=== PATIENT | female | born 1990 | race Caucasian/White ===

== ENCOUNTER 2021-09-10 13:00 | Emergency (ER) | payer OTHER, SELFPAY ==
--- NOTE | ~2021-09-10 | XR_ITS ---
XR abdomen/kub 1V 09/10/2021 13:40 INDICATION: Lower abdomen pain TECHNIQUE: KUB COMPARISON: No prior studies for comparison. FINDINGS: Bowel gas pattern is normal. There is no evidence of free air, mass, organomegaly, ascites or obstruction. No abnormal calculi are seen. The bones appear intact. IMPRESSION: 1: No acute abdominal abnormality identified. Reviewed, dictated and finalized at location A.
--- NOTE | 2021-09-10 13:12 | ED.ABDPAIN ---
HPI - Abdominal Pain General Chief Complaint: Abdominal Pain Stated Complaint: abd pain Time Seen by Provider: 09/10/21 13:02 History of Present Illness HPI narrative: 31-year-old female presents emergency room for evaluation of abdominal pain. Patient states that she is experiencing lower abdominal pain that radiates through to her back. Also endorses pressure on her rectum. Patient states she has not had a bowel movement in over 48 hours. Nauseated after eating. Has flatulence. Describes the pain as a fullness and bloating feeling. Denies fever Review of Systems Review of Systems: CONSTITUTIONAL: Denies fever, chills, or sweats. EYES: Denies visual changes, redness, or discharge. ENT: Denies rhinorrhea, congestion, sore throat, or otalgia. CARDIOVASCULAR: Denies chest pain, palpitations, or edema. RESPIRATORY: Denies cough or dyspnea. GASTROINTESTINAL: Reports abdominal pain, constipation GENITOURINARY: Denies dysuria or hematuria. SKIN: Denies rash or itching. MUSCULOSKELETAL: Denies back pain, joint pain, or myalgia. NEUROLOGIC: Denies headache, numbness, dizziness, or weakness. PSYCHIATRIC: Denies anxiety or depression. Exam Narrative: GENERAL: Well-appearing, well-nourished, no physical limitations, and in no acute distress. HEAD: Normocephalic, atraumatic. EYES: Conjunctivae normal, PERRLA and EOMI. CHEST: Clear to auscultation. No respiratory distress. No wheezes rales or rhonchi. No tenderness. HEART: Regular rate and rhythm. No murmur heard. Normal peripheral pulses. ABDOMEN: Soft, lower abdominal tenderness, nondistended, normal active bowel sounds. BACK: No CVA tenderness; No cervical/thoracic/lumbar tenderness, step-offs, bony abnormality; FROM EXTREMITIES: Normal range of motion. No edema. No clubbing or cyanosis SKIN: Warm, dry, no rash. No noted wounds NEURO: No focal deficits. Alert and oriented x3. MAEW. CN's II-XI intact bilaterally, normal gait PSYCH: Cooperative. Normal mood and affect. Course Vital Signs Vital signs: Vital Signs Temperature 36.3 C L 09/10/21 13:22 Pulse Rate 71 09/10/21 13:22 Respiratory Rate 16 09/10/21 13:22 Pulse Oximetry 99 09/10/21 13:22 Temperature 36.3 C L 09/10/21 13:22 Pulse Rate 71 09/10/21 13:22 Respiratory Rate 16 09/10/21 13:22 Pulse Oximetry 99 09/10/21 13:22 MDM - Abdominal Pain Lab Data Labs: Lab Results 09/10/21 Range/Units 13:48 Urine Color Yellow (Yellow) Urine Appearance Slightly cloudy (Clear) Urine pH 7.0 (5.0-9.0) Ur Specific Pioneer 1.010 (1.001-1.035) Urine Protein Negative (Negative) mg/dL Urine Glucose (UA) Negative (Negative) mg/dL Urine Ketones Negative (Negative) mg/dL Ur Blood (Man) Negative (Negative) Urine Nitrate Negative (Negative) Urine Bilirubin Negative (Negative) Urine Urobilinogen 0.2 (<2.0) mg/dL Leukocyte Esterase Rfl 1+ H (Negative) ALY/UL Urine RBC 3-5 H (0-2) /hpf Urine WBC 7-9 H /hpf Ur Squamous Epith Cells Many H (Few) /hpf Urine Bacteria Trace /hpf Hyaline Casts 1-2 (None) /lpf Urine Mucus Rare /lpf UCG Bedside Result Positive Reference Range: Negative Imaging Data Radiologist's impression: ITS Impressions Abdomen X-Ray 09/10/21 13:41 IMPRESSION: 1: No acute abdominal abnormality identified. Discharge Plan Discharge Clinical Impression: Constipation, First trimester , UTI (urinary tract infection) Patient Disposition: Home, Self-Care Condition: Stable Instructions: Antibiotic Form, Constipation (DC), High Fiber Diet (ED), Abdominal Pain in (ED) Additional Instructions: Follow-up with [facility] in the next 2 to 4 months. Recommend starting vitamins. To manage her constipation, may take Metamucil and or milk of magnesia. Prescriptions: New nitrofurantoin monohyd/m-cryst [Macrobid] 100 mg capsule
[2021-09-10 13:22] VITALS: PULSE 71; RESP 16; TEMP 36.3; O2SAT 99
[2021-09-10 13:59] LABS: Appearance Urine Slightly Cloudy (Clear); Bilirubin Urine Negative (Negative); Blood Urine Negative (Negative); Color Urine Yellow (Yellow); Glucose Urine UA Negative (Negative); Ketones Urine Negative (Negative); Leukocyte Esterase Ur 1+ LEU/UL (Negative); Nitrate Urine Negative (Negative); Protein Urine Negative (Negative); Urobilinogen Urine 0.2 mg/dL (<2.0)
[2021-09-10 14:02] LABS: Bacteria Urine Trace /hpf; Mucus Urine Rare /lpf; Squamous Epithelial Cell Urine Many /hpf (Few)
[2021-09-10 14:03] LABS: Add Urine Microscopic? YES
[2021-09-10 14:55] VITALS: BP 125/71; PULSE 71; RESP 16; TEMP 36.4; O2SAT 100
== END 2021-09-10 14:57 | disposition home or self-care (01) ==
LOC: ANHED 14:46
PROVIDERS: Emergency Provider Nurse Practitioner Family
DX: O23.41 Unspecified infection of urinary tract in pregnancy, first trimester (principal); N39.0 Urinary tract infection, site not specified; O26.891 Other specified pregnancy related conditions, first trimester; K59.00 Constipation, unspecified; Z3A.00 Weeks of gestation of pregnancy not specified
CPT/HCPCS: 74018; 81001; 81025; 87086; 99283

== ENCOUNTER 2023-03-20 08:22 | Emergency (ER) | payer OTHER, SELFPAY ==
[2023-03-20 08:34] VITALS: BP 125/84; PULSE 100; RESP 16; TEMP 37.1; O2SAT 99
--- NOTE | 2023-03-20 09:03 | ED.URI ---
HPI - URI/Sore Throat General Chief Complaint: Upper Respiratory Infection Stated Complaint: congestion, throat pain Time Seen by Provider: 03/20/23 09:03 History of Present Illness HPI Narrative: 33-year-old female presented for complaint of sore throat worsening over the past 4 days. She endorses sinus congestion for about 2 weeks. She took Claritin and Sudafed without much relief. She denies headache, dizziness, nausea, vomiting, diarrhea, fevers or chills. Related Data Allergies Allergy/AdvReac Type Severity Reaction Status Date / Time No Known Allergies Allergy Verified 03/20/23 09:00 Review of Systems Review of Systems: CONSTITUTIONAL: Denies body aches, fever, chills, or sweats. EYES: Denies visual changes, redness, or discharge. ENT: reports rhinorrhea, congestion, sore throat CARDIOVASCULAR: Denies chest pain, palpitations, or edema. RESPIRATORY: Denies dyspnea. GASTROINTESTINAL: Denies abdominal pain, nausea, vomiting, or diarrhea. SKIN: Denies rash, itching, or wounds. MUSCULOSKELETAL: Denies back pain, joint pain, or myalgia. NEUROLOGIC: Denies headache [facility] Past Medical History Medical History (Updated 03/20/23 @ 09:13 by Daysi García, PRODUCT DEVELOPMENT CONSULTANT) No pertinent past medical history Exam Narrative: GENERAL: well-appearing, no acute distress. EYES: conjunctivae clear ENT: Mucous membranes moist. nasal congestion. pearly sloan with normal light reflex bilaterally; no tragal tenderness. Oropharynx erythematous Tonsils enlarged 2+ with exudate. No drooling, no hoarseness, no trismus, uvula midline. No tripod positioning, hot potato voice, or soft palate swelling. NECK: Supple. Bilateral anterior cervical lymphadenopathy CHEST: Clear to auscultation, breath sounds equal. No respiratory distress, speaks in full sentences. HEART: Regular rate and rhythm. No murmur heard. SKIN: Warm, dry, no rash. NEURO: Alert and oriented x3. Course Course Emergency Course: Patient is aware of diagnosis, understands and agrees to treatment plan. Anticipatory guidance given. Patient agrees to follow-up as directed and is aware of reasons to seek care at the emergency department. Portions of this record may have been created with voice recognition software Level of Care: Express Care Visit Vital Signs Vital signs: Vital Signs Temperature 98.7 F 03/20/23 08:34 Pulse Rate 100 03/20/23 08:34 Respiratory Rate 16 03/20/23 08:34 Blood Pressure 125/84 03/20/23 08:34 Pulse Oximetry 99 03/20/23 08:34 Oxygen Delivery Room Air 03/20/23 08:34 Temperature 98.7 F 03/20/23 08:34 Pulse Rate 100 03/20/23 08:34 Respiratory Rate 16 03/20/23 08:34 Blood Pressure 125/84 03/20/23 08:34 Pulse Oximetry 99 03/20/23 08:34 Oxygen Delivery Room Air 03/20/23 08:34 MDM - URI/Sore Throat MDM Narrative Medical decision making narrative: POS strep result reviewed with pt. Advise supportive treatments. Patient is appropriate for outpatient treatment and follow-up. Differential Diagnosis Differential diagnosis: Likely upper respiratory infection, viral infection and pharyngitis Discharge Plan Discharge Clinical Impression: Strep pharyngitis Patient Disposition: Home, Self-Care Condition: Stable Instructions: Antibiotic Form, Strep Throat (ED) Additional Instructions: - Take the antibiotic as directed. Fever and sore throat typically resolve within one to three days. Most patients can return to work, after 12 to 24 hours of antibiotic therapy, provided you are fever free and otherwise well. -Eat and drink things that are easy to swallow, like soft foods, cool liquids, tea with honey, or popsicles . -Salt water gargles and/or may use topical anesthetic ( Chloraseptic spray) or lozenges to relieve dryness or throat pain -Alternate Tylenol and ibuprofen as needed for pain and fever as directed. 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
== END 2023-03-20 09:10 | disposition home or self-care (01) ==
PROVIDERS: Emergency Provider Nurse Practitioner Family
DX: J02.0 Streptococcal pharyngitis (principal)
CPT/HCPCS: 87880; 99213; G0463

== ENCOUNTER 2023-06-18 18:44 | Emergency (ER) | payer OTHER, SELFPAY ==
[2023-06-18 18:55] VITALS: BP 128/83; PULSE 77; RESP 16; TEMP 36.7; O2SAT 100
--- NOTE | 2023-06-18 19:01 | P.SPORTS_ITS ---
[facility] Past Medical History Medical History (Updated 03/21/23 @ 00:01 by Timi Nixon) No pertinent past medical history Allergies: Allergies Allergy/AdvReac Type Severity Reaction Status Date / Time No Known Allergies Allergy Verified 06/18/23 18:52 Home Medications: Home Medications Medication Instructions Recorded Confirmed No Home Medications 06/18/23 06/18/23 Vital Signs: Vital Signs Temperature 36.7 C 06/18/23 18:55 Pulse Rate 77 06/18/23 18:55 Respiratory Rate 16 06/18/23 18:55 Blood Pressure 128/83 06/18/23 18:55 Pulse Oximetry 100 06/18/23 18:55 Oxygen Delivery Room Air 06/18/23 18:55 Temperature 36.7 C 06/18/23 18:55 Pulse Rate 77 06/18/23 18:55 Respiratory Rate 16 06/18/23 18:55 Blood Pressure 128/83 06/18/23 18:55 Pulse Oximetry 100 06/18/23 18:55 Oxygen Delivery Room Air 06/18/23 18:55 Services Provided Sports Physical Completed: Lucina Norris was seen today, 06/18/23, for a sports physical. The paper physical form was completed and scanned into the chart. The original paper physical form was given to the patient for submission to their school. Discharge Plan Discharge Prescriptions: No Action No Home Medications Follow-up/Referrals: PHYSICIAN,SLIDER ASSEMBLER [Primary Care Provider] -
--- NOTE | 2023-06-18 19:06 | ED.SKABFB ---
HPI - Skin/Abscess/Foreign Bdy General Chief complaint: Skin/Abscess/Foreign Body Stated complaint: Rash Time Seen by Provider: 06/18/23 19:00 Source: patient, RN notes reviewed and old records reviewed Mode of arrival: ambulatory Limitations: no limitations History of Present Illness HPI narrative: 33 year old female with complaints of 2 week duration of rash to her lower legs, arms forehead, right jaw area that is red raised and itchy. Patient reports that neighbor was burning some brush and she had been clearing some debris away from her yard. Patient srates that she has been taking Benadryl for the itching at night and has been applying alcohol to rash to try and dry it up, hydrocortisone to face.. Patient reports that rash seems to be worse the past week. has not noted any drainage from rash. MD complaint: rash Onset (ago): week(s) (2 increase symptoms for 1 week) Location: face (forhead and right jaw line), LUE, RUE, LLE and RLE Treatments prior to arrival: other (Alcohol to rash, hydrocortisone to facial rash and Benadryl) Related Data Allergies Allergy/AdvReac Type Severity Reaction Status Date / Time No Known Allergies Allergy Verified 06/18/23 18:52 Review of Systems Review of Systems: CONSTITUTIONAL: Denies fever, chills, or sweats. CARDIOVASCULAR: Denies chest pain, palpitations, or edema. RESPIRATORY: Denies cough or dyspnea. SKIN: Reports rash to the lower legs bilateral arms, right side of jaw and to forehead, is itchy MUSCULOSKELETAL: Denies joint pain or myalgia. NEUROLOGIC: Denies headache, numbness, or weakness. All systems reviewed & are unremarkable except as noted in HPI and below PMFSH Past Medical History Medical History No pertinent past medical history Social History Social History Smoking status: Never smoker Alcohol intake: current Alcohol use details: social Substance use type: does not use Living arrangements: with family Gender identity (if verbalized by the patient): Female Comments At time of signature, agree with nursing past medical, surgical, social and family history. There is no relevant family history pertinent to the presenting complaint Exam Narrative: GENERAL: Well-appearing, well-nourished, and in no acute distress. HEAD: Normocephalic, atraumatic. EYES: PERRLA, conjunctivae clear, and EOMI. ENT: Mucous membranes moist. Oropharynx without edema, erythema or lesions. NECK: Supple. No lymphadenopathy CHEST: Clear to auscultation. No respiratory distress.SAO2 100% on room air HEART: Regular rate and rhythm. SKIN: Warm, dry.? Patches of erythema on bilateral lower legs arms forehead and right jaw area which is itchy NEURO:? Alert and oriented x3. PSYCH: Normal mood and affect Course Course Emergency Course: Patient is aware of diagnosis, understands and agrees to treatment plan.? Anticipatory guidance given.? Patient agrees to follow-up as directed and is aware of reasons to seek care at the emergency department. Portions of this record may have been created with voice recognition software Level of Care: Express Care Visit Vital Signs Vital signs: Vital Signs Temperature 36.7 C 06/18/23 18:55 Pulse Rate 77 06/18/23 18:55 Respiratory Rate 16 06/18/23 18:55 Blood Pressure 128/83 06/18/23 18:55 Pulse Oximetry 100 06/18/23 18:55 Oxygen Delivery Room Air 06/18/23 18:55 Temperature 36.7 C 06/18/23 18:55 Pulse Rate 77 06/18/23 18:55 Respiratory Rate 16 06/18/23 18:55 Blood Pressure 128/83 06/18/23 18:55 Pulse Oximetry 100 06/18/23 18:55 Oxygen Delivery Room Air 06/18/23 18:55 Reviewed MDM - Skin/Abscess/Foreign Bdy MDM Narrative Medical decision making narrative: Does not appear at this time to be erythema multiforme, bullous, SJS, TEN; no evidence at this time to suggest R
[2023-06-18] MEDS: methylPREDNISolone ACETATE 80 MG/ML VIAL IM (19:11)
== END 2023-06-18 19:30 | disposition home or self-care (01) ==
PROVIDERS: Emergency Provider Registered Nurse
DX: L23.7 Allergic contact dermatitis due to plants, except food (principal)
CPT/HCPCS: 96372; 99213; G0463; J1010

== ENCOUNTER 2024-01-30 17:36 | Emergency (ER) | payer OTHER, SELFPAY ==
[2024-01-30 17:44] VITALS: BP 122/72; PULSE 97; RESP 18; TEMP 38; O2SAT 100
--- NOTE | 2024-01-30 18:03 | ED_ITS ---
HPI - URI/Sore Throat General Chief Complaint: Upper Respiratory Infection Stated Complaint: sore throat exposure Time Seen by Provider: 01/30/24 18:03 Source: patient, RN notes reviewed and old records reviewed Mode of arrival: ambulatory Limitations: no limitations History of Present Illness HPI Narrative: 33-year-old female presents to the [facility] with complaints of a sore throat. Denies any other symptoms. Symptoms started on Tuesday, 2 days ago. Onset (ago): day(s) (2) Related Data Home Medications Medication Instructions Recorded Confirmed No Home Medications 01/30/24 01/30/24 Allergies Allergy/AdvReac Type Severity Reaction Status Date / Time No Known Allergies Allergy Verified 01/30/24 17:38 Review of Systems Review of Systems: All systems reviewed & are unremarkable except as noted in HPI and below Constitutional: Constitutional: Reports no additional constitutional complaints ENT: Reports as per HPI and Reports sore throat Cardiovascular: Cardiovascular: Reports no additional cardiovascular complaints, Denies chest pain and Denies dyspnea Respiratory: Respiratory: Reports no additional respiratory complaints, Denies chest congestion, Denies cough and Denies dyspnea Gastrointestinal: Gastrointestinal: Reports no additional gastrointestinal complaints, Denies abdominal pain, Denies nausea and Denies vomiting Musculoskeletal: Musculoskeletal: Reports no additional musculoskeletal complaints Integumentary/Breasts: Skin/Breast: Reports system reviewed and no additional complaints, except as docu PMFSH Past Medical History Medical History No pertinent past medical history Social History Social History Smoking status: Never smoker Alcohol intake: current Alcohol use details: social Substance use type: does not use Living arrangements: with family Gender identity (if verbalized by the patient): Female Comments At the time of my signature, I reviewed and agree with the nursing past medical, surgical, social, and family history. There is no relevant family history pertinent to the patient complaint. Exam Const: General: cooperative, healthy appearing, comfortable, no acute distress, well developed, alert and well nourished Nutritional Appearance: well nourished Orientation/consciousness: patient oriented x3 Limitations: no limitations HENMT: Head: normal to inspection Ears: hearing grossly normal bilaterally and external ears normal Face/Nose/Sinus: Normal external nose present, normal facial exam and face symmetric Face and sinus: normal facial exam and face symmetric Mouth: Yes Normal oral and palatal mucosa present, Yes lip normal and Yes tongue normal Throat: tonsils normal, uvula midline, postnasal drainage and no uvular edema Eyes: General: appearance normal, both eyes and all related structures Alignment and Position: alignment normal Periorbital: periorbital findings normal Neck: Neck: normal visual inspection, full ROM, no lymphadenopathy and no meningeal signs Chest: Chest palpation & inspection: normal inspection of the chest Resp: Effort & Inspection: normal respiratory effort and able to speak in complete sentences Auscultation: clear to auscultation bilaterally, no crackles, no rales, no rhonchi and no wheezes Cardio: Rate: regular rate Skin: General skin exam: normal color and no rashes or lesions noted Lesions: no lesions Rashes: no rashes Wounds: no wounds Neuro: General: patient oriented x3, gait normal, tone normal, moves all extremities and no meningeal signs Cognition (Neuro): normal cognition Speech: normal speech Gait exam (Neuro): Normal gait present Extrem: General: normal to inspection, full ROM, capillary refill normal and normal gait Psych: Appearance: grossly normal and well kempt Mental Status: mental status grossly normal Speech and movement: Normal speech and movement present and Clear speech present Affect: normal affect Attitude: cooperative Course Course Level of Care: Express Care Visit Vital Signs Vital signs: Vital Signs Temperature 100.4 F H 01/30/24 17:44 Pulse Rate 97 01/30/24 17:44 Respiratory Rate 18 01/30/24 17:44 Blood Pressure 122/72 01/30/24 17:44 Pulse Oximetry 100 01/30/24 17:44 Oxygen Delivery Room Air 01/30/24 17:44 Temperature 100.4 F H 01/30/24 17:44 Pulse Rate 97 01/30/24 17:44 Respiratory Rate 18 01/30/24 17:44 Blood Pressure 122/72 01/30/24 17:44 Pulse Oximetry 100 01/30/24 17:44 Oxygen Delivery Room Air 01/30/24 17:44 Reviewed MDM - URI/Sore Throat MDM Narrative Medical decision making narrative: Patient sitting comfortably in exam room. Nontoxic, vitals are stable. Patient presents with 2 day history of sore throat, strep test negative. Patient appropriate for outpatient treatment of viral pharyngitis with close follow-up. Did send culture for evaluation Discharge instructions reviewed with patient, as well as provided in writing per nursing staff. The instructions also include specific and strict return/GO TO THE ER as well as f/u information. All questions have been answered, and the patient deny any further questions with discharge and discharge plan. Some parts of this dictation were generated by voice recognition software and may contain typographical and/or grammatical inaccuracies. Differential Diagnosis Differential diagnosis: Likely upper respiratory infection and pharyngitis Lab Data Labs: Lab Results 01/30/24 Range/Units 18:14 POC Grp A Strep Screen Negative (Negative) Reviewed Critical Care Time Critical Care Time Critical Care Time: No Discharge Plan Discharge Clinical Impression: Pharyngitis Qualifiers: Pharyngitis/tonsillitis etiology: unspecified etiology Qualified Code(s): J02.9 - Acute pharyngitis, unspecified Patient Disposition: Home, Self-Care Condition: Stable Instructions: Antibiotic Form, Pharyngitis (ED) Additional Instructions: Your rapid strep swab was negative today at [facility]. A throat culture will be sent to the laboratory for further testing. If the test is positive, you will receive a phone call within 48 hours and an appropriate antibiotic will be initiated at that time. Your symptoms are likely due to a viral illness, which is not treated with antibiotics. Typically viral infections last 7-10 days, can linger for couple of weeks. It is very important to treat your symptoms. Plenty of water, Gatorade, Pedialyte, ice pops or Jell-O. -Alternate Tylenol and Motrin per package directions for fever or pain. You can alternate every 4 hours -Antihistamine medication such as Benadryl at night and Zyrtec/Claritin/Marisol during the day can help improve symptoms. -doing daily nasal irrigations can help relieve pressure your sinuses. Things like a Neti pot -Use Flonase twice a day for 5 days then daily to help reduce the inflammation and dry up your sinuses. -You can also use Mucinex. Be sure to drink plenty of water with this medication at least 8 ounces with every dose and it is important to drink 8 to 10 glasses of water per day. Water is a natural decongestant -Eat and drink things that are easy to swallow, like tea or soup, or popsicles. -Oral rinses such as: Salt water gargles and/or may use topical anesthetic (eg. Chloraseptic spray) or lozenges to relieve dryness or throat pain). -Frequent hand washing or hand manager rn case is one of the best ways to prevent spread of infection. -Using a vaporizer or humidifier at night will also help thin secretions and help with coughing up phlegm. -Follow up with primary care provider in 7-10 days if condition is not improving If you are having a hard time finding a physician please call our [facility] liaison at [phone]. - For new or worsening symptoms go directly to the nearest ER Patient Language: Icelandic Prescriptions: No Action No Home Medications Follow-up/Referrals: PHYSICIAN,MUSEUM HOST/HOSTESS [Primary Care Provider] - Stand Alone Forms: Work/School Release IP Time of Disposition: 18:19
[2024-01-30 18:16] LABS: EDSTREPNEGPOS1 Negative (Negative)
== END 2024-01-30 18:25 | disposition home or self-care (01) ==
PROVIDERS: Emergency Provider Nurse Practitioner
DX: J02.9 Acute pharyngitis, unspecified (principal)
CPT/HCPCS: 87081; 87880; 99213; G0463